=== PATIENT | female | born 1930 | race Caucasian/White ===

== ENCOUNTER → 2016-05-21 | Outpatient (CLI) | payer MEDICARE | LOC: BFHH 11:20 | PROVIDERS: ATTEND Family Medicine | DX: E55.9 Vitamin D deficiency, unspecified (principal); D51.0 Vitamin B12 deficiency anemia due to intrinsic factor deficiency; I11.0 Hypertensive heart disease with heart failure; I50.30 Unspecified diastolic (congestive) heart failure; E11.9 Type 2 diabetes mellitus without complications; I25.119 Atherosclerotic heart disease of native coronary artery with unspecified angina pectoris; R53.81 Other malaise; E03.8 Other specified hypothyroidism ==

== ENCOUNTER → 2016-11-16 | Outpatient (CLI) | payer MEDICARE | END | disposition home or self-care (01) | LOC: BFHH 09:34 | PROVIDERS: ATTEND Family Medicine | DX: I11.0 Hypertensive heart disease with heart failure (principal); E11.9 Type 2 diabetes mellitus without complications ==

== ENCOUNTER → 2017-05-10 | Outpatient (CLI) | payer MEDICARE | LOC: BFHH 13:06 | PROVIDERS: ATTEND Family Medicine | DX: E11.9 Type 2 diabetes mellitus without complications (principal) ==

== ENCOUNTER → 2017-05-24 | Outpatient (CLI) | payer MEDICARE | LOC: BFHH 10:10 | PROVIDERS: ATTEND Family Medicine | DX: J44.1 Chronic obstructive pulmonary disease with (acute) exacerbation (principal); I11.0 Hypertensive heart disease with heart failure; I50.30 Unspecified diastolic (congestive) heart failure; E11.9 Type 2 diabetes mellitus without complications; E78.4 Other hyperlipidemia; R53.82 Chronic fatigue, unspecified ==

== ENCOUNTER → 2017-06-07 | Outpatient (CLI) | payer MEDICARE ==
--- NOTE | 2017-06-08 09:13 | MAM ---
Screening BILATERAL MAMMOGRAMS HISTORY: SCREENING COMPARISON: Mammograms of August 22, 2012 and July 20, 2011 TECHNIQUE: Digital 2-D mammograms , and 3-D tomosynthesis,1 of both breasts were performed in CC and MLO orientations. Mammo CAD analysis also performed. FINDINGS: Scattered fibroglandular tissue identified in both breasts. Benign microcalcifications and vascular calcifications scattered in both breasts. No obvious mass lesion or concerning microcalcifications detected in either breast. IMPRESSION: No mammographic evidence of malignancy in either breast. BI-RADS: 2, benign findings. Follow-up: Annual surveillance recommended Electronically signed by: Kevin Lozano MD 06/08/2017 9:12 AM [employer]
== END ==
LOC: MAMMO 14:15
PROVIDERS: ATTEND Family Medicine
DX: Z12.31 Encounter for screening mammogram for malignant neoplasm of breast (principal)

== ENCOUNTER → 2017-06-19 | Outpatient (CLI) | payer MEDICARE | LOC: BFHH 13:40 | PROVIDERS: ATTEND Family Medicine | DX: N39.0 Urinary tract infection, site not specified (principal) ==

== ENCOUNTER → 2017-06-21 | Outpatient (CLI) | payer MEDICARE | LOC: BFHH 13:38 | PROVIDERS: ATTEND Family Medicine | DX: R35.0 Frequency of micturition (principal) ==

== ENCOUNTER 2017-07-26 16:09 | Inpatient (IN) | payer MEDICARE ==
--- NOTE | 2017-07-26 17:02 | ED.PDOC ---
History of Present Illness - General Chief Complaint: Syncope/Near Syncope Stated Complaint: syncope Time Seen by Provider: 07/26/17 16:49 Source: family Exam Limitations: other - PT HAS DEMENTIA Additional Information: PT HAS BEEN EXPERIENCING EPISODES OF HYPOTENSION. FAMILY PROVIDES HX. REPORTS BP 'S 50'S-60'S/40'S. 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 FAMILY REPORTS PROVIDER WITNESSED EPISODE AND TOLD THEM SHE HAD A SZ. - History of Present Illness Timing/Duration: other - [employer] Severity: moderate Improving Factors: nothing Worsening Factors: nothing Associated Symptoms: syncope, other - DIZZINESS WITH STANDING Allergies/Adverse Reactions: Allergies Propranolol [From Inderal] Allergy (Unknown, Verified 07/26/17 16:36) Home Medications: Ambulatory Orders Albuterol Sulfate 1 vial INH PRN PRN 07/17/13 Aspirin 81 81 mg PO DAILY 07/17/13 Budes/Formoterol INH 160/4.5 [Symbicort Inhaler 160/4.5] 1 puff INH BID Diovan 80 mg PO DAILY 07/17/13 Furosemide 20 mg PO DAILY 07/17/13 Isosorbide Mononitrate 60 mg PO DAILY 07/17/13 Klor-Con 10 10 meq PO DAILY 07/17/13 Metformin HCl 500 mg PO DAILY 07/17/13 Metoprolol Tartrate 50 mg PO BID 07/17/13 Vitamin D 1 tab PO DAILY 07/17/13 Ascorbic Acid [Vitamin C] 500 mg PO DAILY 05/15/15 Calcium Carbonate [Caltrate 600] 1,500 mg PO DAILY 05/15/15 Donepezil Hydrochloride [Donepezil HCl] 5 mg PO DAILY 05/15/15 Guaifenesin [Diabetic Tussin] 100 mg PO DAILY 05/15/15 Multiple Vitamins W/ Minerals [Centrum Adults] 1 tab PO DAILY 05/15/15 Niacin [Niacin Tr] 1,000 mg PO DAILY 05/15/15 Probiotic Product [Probiotic] 1 tab PO DAILY 05/15/15 Review of Systems - Review of Systems Constitutional: States: weakness. Denies: chills, fever EENTM: States: no symptoms reported Respiratory: Denies: cough, short of breath Cardiology: States: syncope. Denies: chest pain, palpitations Gastrointestinal/Abdominal: Denies: abdominal pain, diarrhea, nausea, vomiting Genitourinary: States: no symptoms reported Musculoskeletal: States: no symptoms reported Skin: States: no symptoms reported Neurological: States: other - "SZ". Denies: numbness, weakness Endocrine: States: no symptoms reported Hematologic/Lymphatic: States: no symptoms reported Past Medical History (General) - Patient Medical History Hx Dementia: Yes Hx Asthma: Yes Hx of COPD: Yes Hx Cardiac Disorders: Yes - [place] Hx Congestive Heart Failure: No Hx Hypertension: Yes Hx Diabetes: Yes Hx Cancer: No Surgical History: Hysterectomy, other - Vaccination History Hx Tetanus, Diphtheria Vaccination: Yes Hx Influenza Vaccination: Yes Hx Pneumococcal Vaccination: Yes - Social History Hx Tobacco Use: No Hx Alcohol Use: No - Female History Patient : No Family Medical History - Family History Mother Family History: No Known Living Status: Physical Exam - Physical Exam General Appearance: Alert, No apparent distress Eye Exam: bilateral normal Ears, Nose, Throat: hearing grossly normal, normal ENT inspection Neck: non-tender, full range of motion, supple, normal inspection Respiratory: lungs clear, no respiratory distress Cardiovascular/Chest: regular rate, rhythm, no murmur Gastrointestinal/Abdominal: normal bowel sounds, non tender, soft, no organomegaly Back Exam: normal inspection, no CVA tenderness Extremity: normal range of motion, non-tender, normal inspection Neurologic: no motor/sensory deficits, alert, normal mood/affect Skin Exam: normal color, warm/dry Lymphatic: no adenopathy Progress - Progress Progress: 07/26/17 18:16 VSS, POS TILT. - EKG/XRAY/CT EKG: Sinus - JAYCOB RATE 59, LAD, , RBBB, nonspecific ST T wave Chg - NO CHANGE FROM 01/03/15 XRAY: chest - LLL INFILTRATE Departure - Departure Clinical Impression: Orthostatic hypotension Pneumonia Qualifiers: Pneumonia type: due to unspecified organism Laterality: left Lung location: lower lobe of lung Qualified Code(s): J18.1 - Lobar pneumonia, unspecified organism Hypertension Qualifiers: Hypertension type: essential hypertension Qualified Code(s): I10 - Essential ( primary) hypertension Time of Disposition: 18:26 - D/W [facility] Disposition: Admit Patient Condition: Fair Departure Forms: ED Discharge - Pt. Copy, Patient Portal Self Enrollment Referrals: Jose Alberto Ascencio III, MD [Primary Care Provider] - 1-2 Weeks Home Medications: Ambulatory Orders Albuterol Sulfate 1 vial INH PRN PRN 07/17/13 Aspirin 81 81 mg PO DAILY 07/17/13 Budes/Formoterol INH 160/4.5 [Symbicort Inhaler 160/4.5] 1 puff INH BID Diovan 80 mg PO DAILY 07/17/13 Furosemide 20 mg PO DAILY 07/17/13 Isosorbide Mononitrate 60 mg PO DAILY 07/17/13 Klor-Con 10 10 meq PO DAILY 07/17/13 Metformin HCl 500 mg PO DAILY 07/17/13 Metoprolol Tartrate 50 mg PO BID 07/17/13 Vitamin D 1 tab PO DAILY 07/17/13 Ascorbic Acid [Vitamin C] 500 mg PO DAILY 05/15/15 Calcium Carbonate [Caltrate 600] 1,500 mg PO DAILY 05/15/15 Donepezil Hydrochloride [Donepezil HCl] 5 mg PO DAILY 05/15/15 Guaifenesin [Diabetic Tussin] 100 mg PO DAILY 05/15/15 Multiple Vitamins W/ Minerals [Centrum Adults] 1 tab PO DAILY 05/15/15 Niacin [Niacin Tr] 1,000 mg PO DAILY 05/15/15 Probiotic Product [Probiotic] 1 tab PO DAILY 05/15/15
--- NOTE | 2017-07-26 17:44 | RAD ---
EXAM DESCRIPTION: Chest,1 View CLINICAL HISTORY: SYNCOPE COMPARISON: January 03, 2015 FINDINGS: Cardiac silhouette is within normal limits. There is central pulmonary vascular engorgement versus enlarged parahilar lymph nodes or masses of other etiology. These findings appear similar. Atelectasis and probable consolidation involving the left lung base. The right lung is clear. IMPRESSION: Left lung base consolidation. Electronically signed by: Silverio Gerardo 07/26/2017 5:43 PM CDT
--- NOTE | 2017-07-26 17:47 | CT ---
EXAM DESCRIPTION: Head CLINICAL HISTORY: SZ COMPARISON: None Available TECHNIQUE: Contiguous axial CT images of the head were obtained. Coronal and sagittal reconstructions were created from the axial data. This exam was performed according to our departmental dose-optimization program, which includes automated exposure control, adjustment of the mA and/or kV according to patient size and/or use of iterative reconstruction technique. FINDINGS: There is no evidence of acute mass, mass effect, midline shift or hemorrhage. The ventricles and extra-axial CSF spaces are unremarkable. The brain parenchyma appears normal for the patient's age. No acute abnormalities of the bones is seen. IMPRESSION: No acute intracranial abnormality. Electronically signed by: Silverio Gerardo 07/26/2017 5:45 PM CDT
[2017-07-26] MEDS ORDERED: SODIUM CHLORIDE 0.9% 500ML 500 ML IVS ONE (18:08)
[2017-07-26] MEDS ORDERED: cefTRIAXone SODIUM 1 GM in SODIUM CHL 0.9% 50ML MIN-BAG+ 50 ML IVPB ONE (18:30)
[2017-07-26] MEDS ORDERED: AZITHROMYCIN IV 500 MG in SODIUM CHLORIDE 0.9% 250ML 250 ML IVPB ONE (18:30)
[2017-07-26] MEDS ORDERED: SODIUM CHL 0.9% 50ML MIN-BAG+ 50 ML IVPB ONE ×2 (18:54→22:13)
[2017-07-26] MEDS ORDERED: cefTRIAXone SODIUM 1 GM VIAL ONE (18:54)
[2017-07-26] MEDS ORDERED: AZITHROMYCIN IV 500 MG VIAL IVPB ONE (19:26)
[2017-07-26] MEDS ORDERED: SODIUM CHLORIDE 0.9% 250ML 250 ML ONE (19:26)
--- NOTE | 2017-07-26 19:46 | HP ---
SUPERVISING PHYSICIAN: Santo Wright MD CHIEF COMPLAINT: Syncope. HISTORY OF PRESENT ILLNESS: This is an 86-year-old female who came to the Emergency Room today from her primary care physician's office, Dr. Ascencio. The daughter is at the bedside and is assisting with history of present illness as the patient does have some dementia. The daughter states she has been on antibiotics for the last couple of weeks. She does not really know what antibiotic it was, but she knows she has been on it for the last couple of weeks. On Wednesday, she became more short of breath and had low O2 saturations. The home health nurse recommended that she go to the clinic on Wednesday, so she did. Her daughter states she got a steroid injection and possibly antibiotic shot there and p.o. antibiotics were changed. She does not have the name of these two antibiotics that she was on. On Wednesday about 2 o' clock in the afternoon, she was lightheaded and dizzy. They took her blood pressure and it was 57/41. Home health nurse came to see her that day as well and recommended she get some IV fluids. The daughter tried some Pedialyte but she was pretty nauseous and really could not drink too much of it. Today, she went to her doctor's clinic after having another episode of low blood pressure and hear syncopal episode. She went to the clinic around 3 o'clock and once again there when she stood up, she did become syncopal at that time and had what they initially described as a possible seizure. For that reason, the ambulance came and got her and she went to the Emergency Room. In the Emergency Room, her workup included x-ray as well as labs. Her labs showed a normal white count, but she does have a left shift at 90%. She additional has 3 % bands. Her chemistry shows acute kidney injury, but lactate was normal. Blood pressure in the Emergency Room was initially in the 90s. It dropped as low as 78/45. She was given a 500 mL bolus and the orthostatic pressure did go low. Chest x-ray was consistent with left lower lobe pneumonia as well. For these reasons, I was called for admission. On examination, the patient is alert and oriented, but she does have some confusion and repeats herself. She does have a really terrible sounding cough. On exam, she has quite a bit of rhonchi bilaterally. She does have a history of chronic obstructive pulmonary disease as well. Blood pressure here on the Unit is 109/65. PAST MEDICAL HISTORY: 1. Hypertension. 2. Hyperlipidemia. 3. Myocardial infarction about 18 years ago. She continues to have some angina. 4. Congestive heart failure. 5. Chronic obstructive pulmonary disease. 6. Dementia. 7. Irritable bowel syndrome. 8. H. pylori. 9. Diabetes mellitus. PAST SURGICAL HISTORY: 1. Percutaneous transluminal coronary angioplasty with stent times two 18 years ago whenever she had her myocardial infarction. 2. Hysterectomy. 3. Hernia repair. CURRENT MEDICATIONS: 1. Albuterol nebulizer p.r.n. for shortness of breath. 2. Vitamin C 500 mg p.o. daily. 3. Aspirin 81 mg daily. 4. Budesonide and formoterol 160/4.5 1 puff b.i.d. 5. Calcium carbonate 1500 mg tab p.o. daily. 6. Aricept 10 mg p.o. daily. 7. Lexapro 5 mg p.o. daily. 8. Furosemide 20 mg p.o. daily. 9. DuoNeb unit dose q.i.d. p.r.n. 10. Potassium 10 mEq p.o. daily. 11. Lovastatin 20 mg p.o. daily at bedtime. 12. Memantine 5 mg p.o. b.i.d. 13. Metformin 500 mg p.o. daily. 14. Metoprolol 50 mg p.o. b.i.d. 15. Multivitamin 1 p.o. daily. 16. Niacin 1000 mg p.o. daily. 17. Omeprazole 20 mg p.o. daily. 18. Probiotic 1 tab p.o. daily. 19. Simethicone 80 mg 2 tabs p.o. b.i.d. as needed. 20. Vitamin D 1 tab p.o. daily. ALLERGIES: INDERAL. FAMILY HISTORY: Reviewed and noncontributory. SOCIAL HISTORY: The patient has a distant history of smoking, but quite 40 years ago. No alcohol, no illicit drugs. REVIEW OF SYSTEMS: CONSTITUTIONAL: No fever or chills. No recent weight loss or weight gain. Positive for malaise. HEENT: No headaches, vision changes, ear pain, nasal congestion or throat pain. RESPIRATORY: Positive for cough. No hemoptysis or pleuritic chest pain. CARDIOVASCULAR: No chest pain, palpitations or peripheral edema. GASTROINTESTINAL: No nausea, vomiting, diarrhea, constipation or abdominal pain. GENITOURINARY: No dysuria, frequency or flank pain. HEMATOLOGIC: Positive for easy bruising. No transfusion reaction. MUSCULOSKELETAL: No muscle cramps, joint pain or joint swelling. ENDOCRINE: No polydipsia, polyuria, polyphagia. No heat or cold intolerance. NEUROLOGIC: Positive for syncope. No paresthesias. Positive for some confusion. PHYSICAL EXAMINATION: VITAL SIGNS: Blood pressure 110/63. Heart rate 60. Respiratory rate 18. Temperature 97.9. Oxygen saturation 97%. GENERAL: Ms. Holguin is an 86-year-old female acutely ill in appearance currently. HEENT: Normocephalic, atraumatic. Pupils are equal and reactive. No nasal drainage. Throat with slightly dry mucosa. NECK: Supple. Midline trachea. No jugular venous distention. CHEST: Symmetrical with equal rise and fall of the chest with inspiration and expiration. Accessory muscles are being used with respirations. She does have coarse rhonchi bilaterally, scattered wheezing as well. CARDIOVASCULAR: Regular rate and rhythm with II/ systolic murmur. ABDOMEN: Soft, obese. Positive bowel sounds. GENITOURINARY: Deferred. EXTREMITIES: Lower extremities with positive edema. Pulses 1+. Capillary refill is about 3 seconds. NEUROLOGIC: The patient is alert, but confused. Moves all extremities. Extraocular movements are intact. LABORATORY: Chest x-ray consistent with left lower lobe pneumonia. Chemistry remarkable for BUN 24, creatinine 1.34, lactate 1.5. Cultures are pending. White count is normal, however, there are 3% bands a 90% left shift. ASSESSMENT: 1. Left lower lobe pneumonia, failed outpatient therapy. Although white count is normal, she has bandemia as well as left shift. She has been on antibiotics for 2 weeks with no significant improvement in her cough and existing infiltrate on chest x- ray. 2. Syncopal episode with possible seizure. Potential seizure activity noted by the staff at the doctor's office, however, she has no history of seizures. We will continue to monitor for this. 3. Dehydration with acute kidney injury. 4. Diabetes mellitus. 5. History of congestive heart failure. 6. History of hypertension. 7. Dementia. PLAN: Regarding her left lower lobe pneumonia failed outpatient therapy, we will escalate her antibiotics to Levaquin and cefepime. We will recheck labs and chest x-ray tomorrow. Regarding her syncopal episode, we will keep bedrest , but she may get up with some assistance. Her blood pressure is a little bit improved and I feel like she needs some more fluids, so we will gently rehydrate her. This will address her dehydration and acute kidney injury as well. We are currently holding her antihypertensives as well. I will resume her metformin and start her on sliding scale insulin as well in case she needs some extra coverage. She is not currently having any congestive heart failure exacerbation. We will resume her other home medications which may not affect her blood pressure at this time. Her chest X-ray shows prominent pulmonary arteries versus mass, so will get a CT of the chest in the morning. #[id number] [facility]
[2017-07-26] MEDS ORDERED: SODIUM CHLORIDE 0.9% (FLUSH) 10 ML SYG IV PRN (21:01)
[2017-07-26] MEDS ORDERED: DEXTROSE 50% 25 GM/50 ML SYG IV PRN (21:03)
[2017-07-26] MEDS ORDERED: GLUCAGON INJ 1 MG VIAL SUBCU PRN (21:03)
[2017-07-26] MEDS ORDERED: IV SET AND CAP CHANGE INJ INJ SCH (21:30)
[2017-07-26] MEDS ORDERED: ENOXAPARIN SODIUM 40 MG/0.4 ML SYG SUBCU SCH (21:30)
[2017-07-26] MEDS ORDERED: levoFLOXacin 750MG IV 750 MG in PREMIX BAG 1 BAG IVPB SCH (21:30)
[2017-07-26] MEDS: IPRATROPIUM/ALBUTEROL 3 ML VIAL INH SCH (22:00)
[2017-07-26] MEDS ORDERED: CEFEPIME 2 GM VIAL IVPB ONE (22:14)
[2017-07-26] MEDS: SODIUM CHLORIDE 0.9% 1000ML 1,000 ML IVS PRN (22:31)
[2017-07-26] MEDS: CEFEPIME 2 GM in SODIUM CHL 0.9% 50ML MIN-BAG+ 50 ML IVPB SCH (22:32)
[2017-07-27] MEDS: IPRATROPIUM/ALBUTEROL 3 ML VIAL INH SCH ×6 (00:42→20:03)
[2017-07-27] MEDS ORDERED: SODIUM CHL 0.9% 50ML MIN-BAG+ 50 ML IVPB ONE ×2 (07:53→19:27)
[2017-07-27] MEDS ORDERED: CEFEPIME 2 GM VIAL IVPB ONE ×2 (07:53→19:28)
[2017-07-27] MEDS ORDERED: ASPIRIN (CHEWABLE) 81 MG TAB ONE (07:53)
[2017-07-27] MEDS: INSULIN LISPRO 100 UNITS/ML PEN SUBCU SCH ×4 (08:49→21:00)
[2017-07-27] MEDS: BUDESONIDE/FORMOTEROL 160/4.5 60 PUFF/6 GM INH INH SCH ×2 (08:55→20:04)
[2017-07-27] MEDS ORDERED: metFORMIN HCL 500 MG TAB PO SCH (09:00)
[2017-07-27] MEDS: MEMANTINE 10 MG TAB PO SCH ×2 (09:02→20:43)
[2017-07-27] MEDS: OMEPRAZOLE CAP 20 MG CAP PO SCH (09:03)
[2017-07-27] MEDS: DONEPEZIL HCL 5 MG TAB PO SCH (09:03)
[2017-07-27] MEDS: ESCITALOPRAM 10 MG TAB PO SCH (09:03)
[2017-07-27] MEDS: CEFEPIME 2 GM in SODIUM CHL 0.9% 50ML MIN-BAG+ 50 ML IVPB SCH ×2 (09:04→21:00)
[2017-07-27] MEDS: ASPIRIN EC 81 MG TAB PO SCH (09:13)
[2017-07-27] MEDS ORDERED: UMECLIDINIUM BROMIDE INH SCH (09:15)
--- NOTE | 2017-07-27 09:17 | CT ---
EXAM DESCRIPTION: Chest w/Contrast CLINICAL HISTORY: 86 years Female, pneumonia, rule out mass COMPARISON: Chest x-ray dated 26 July 2017 TECHNIQUE: Transaxial images were obtained with intravenous contrast media. Sagittal and coronal reconstruction was performed.This exam was performed according to our departmental dose-optimization program, which includes automated exposure control, adjustment of the mA and/or kV according to patient size and/or use of iterative reconstruction technique. FINDINGS: No thyroid abnormality is seen. No pathologic axillary adenopathy is observed. No hilar or mediastinal adenopathy is seen. No pleural fluid is seen. Minimal atelectatic type parenchymal lung disease is observed in the left lower lobe and right middle lobe. Minimal atelectasis is also observed in the right lower lobe. No adrenal masses are detected. Calcific atherosclerotic changes observed in the thoracic aorta without evidence of aneurysmal dilatation. A markedly dilated pulmonary artery trunk and pulmonary vascularity is observed. Bilateral pulmonary emboli are observed. Coronary artery calcification is noted. The left main pulmonary artery measures 3.72 cm in greatest diameter. The right measures 3.96cm in greatest diameter. Mild cardiac megaly is evident. IMPRESSION: 1. Bilateral pulmonary emboli are observed. 2. Marked dilatation of the pulmonary arteries and pulmonary trunk are observed consistent with pulmonary artery hypertension. 3. Results were called to Dr. Dominguez Electronically signed by: Jose Alberto Dash MD 07/27/2017 9:16 AM CDT
[2017-07-27] MEDS: ENOXAPARIN SODIUM 80 MG/0.8 ML SYG SUBCU SCH ×2 (10:15→20:42)
[2017-07-27] MEDS: SODIUM CHLORIDE 0.9% 1000ML 1,000 ML IVS PRN ×2 (13:02→21:42)
[2017-07-27] MEDS ORDERED: levoFLOXacin 250MG IV 50 ML IVPB ONE (19:28)
--- NOTE | 2017-07-27 19:29 | PN ---
DATE: 07/27/17 SUPERVISING PHYSICIAN: Santo Wright M.D. SUBJECTIVE: The patient feels a little bit better subjectively. She states that she slept well overnight. No significant shortness of breath. She does have a weird sensation on the left side of her chest, not overt pain but just a little bit of discomfort. OBJECTIVE: Blood pressure 151/72, heart rate 64, respiratory rate 20, temperature 98.8, oxygen saturation 97%. GENERAL: Ms. Holguin is an 86 year- old female in no active distress currently. HEENT: Head is normocephalic and atraumatic. EYES: Pupils are equal and reactive. NOSE: No drainage. THROAT: Moist mucosa. NECK: Supple. Midline trachea. No jugular venous distention. CHEST: Symmetrical with equal rise and fall of the chest with inspiration and expiration. Lung sounds are clear to auscultation bilaterally, but a little bit diminished in the bases. CARDIOVASCULAR: Regular rate and rhythm. Normal S1 and S2. ABDOMEN: Soft, obese. Positive bowel sounds. EXTREMITIES: Lower extremities are edematous. Pulses are 2+. NEUROLOGIC: The patient is alert but confused and repeats herself. LABORATORY: White count 6.8, hemoglobin 12.1, hematocrit 36.0, platelet count 199. Chemistry shows sodium 139, potassium 3.5, chloride 103, CO2 is 31, BUN 24 , creatinine 1.01, glucose 100, calcium 8.3. Due to her abnormal chest x-ray yesterday around the perihilar areas where the pulmonary arteries were, we did a CT angiogram of the chest today. This showed bilateral pulmonary emboli and dilation of the pulmonary arteries consistent with pulmonary artery hypertension. ASSESSMENT: 1. Left lower lobe pneumonia with failed outpatient therapy. 2. Bilateral pulmonary emboli. 3. Syncopal episode with possible seizure. 4. Dehydration with acute kidney injury, improved. 5. Diabetes mellitus, controlled. 6. History of congestive heart failure without an acute exacerbation. 7. History of hypertension. 8. Dementia. PLAN: Regarding her left lower lobe pneumonia, will continue the antibiotics at this point. Her white cell count is still normal. She still has a pretty significant cough. Will recheck labs tomorrow. Chest x-ray today was not done due to the CT scan of the chest. Regarding her pulmonary emboli, these are not saddle emboli and not causing hemodynamic instability at this time. Her oxygenation is adequate. Therefore I will utilize Lovenox 1mg per kg b.i.d.. Would change her to p.o. anticoagulation as soon as possible once we know what medication is in compliance with her insurance. Holding her Metformin at [address] angiogram of the chest. Her blood pressure is significantly improved and almost hypertensive at this time, so will consider resuming her blood pressure medications tomorrow. #[id number] [facility]
[2017-07-27] MEDS: UMECLIDINIUM BROMIDE INH SCH (20:04)
[2017-07-27] MEDS: SIMVASTATIN 10 MG TAB PO SCH (20:43)
[2017-07-27] MEDS ORDERED: NON-FORMULARY MEDICATION 1 EA MIS (Lovastatin [Lovastatin] 20 MG) PO SCH (21:00)
[2017-07-27] MEDS: levoFLOXacin 250MG IV 250 MG in PREMIX BAG 1 BAG IVPB SCH (21:42)
[2017-07-28] MEDS: IPRATROPIUM/ALBUTEROL 3 ML VIAL INH SCH ×6 (00:02→20:10)
[2017-07-28] MEDS: OMEPRAZOLE CAP 20 MG CAP PO SCH (06:22)
[2017-07-28] MEDS: INSULIN LISPRO 100 UNITS/ML PEN SUBCU SCH ×4 (07:14→21:41)
[2017-07-28] MEDS ORDERED: SODIUM CHL 0.9% 50ML MIN-BAG+ 50 ML IVPB ONE ×2 (07:16→20:20)
[2017-07-28] MEDS ORDERED: CEFEPIME 2 GM VIAL IVPB ONE ×2 (07:17→20:21)
[2017-07-28] MEDS: BUDESONIDE/FORMOTEROL 160/4.5 60 PUFF/6 GM INH INH SCH ×2 (08:15→20:10)
[2017-07-28] MEDS: SODIUM CHLORIDE 0.9% 1000ML 1,000 ML IVS PRN (09:05)
[2017-07-28] MEDS: MEMANTINE 10 MG TAB PO SCH ×2 (09:07→21:16)
[2017-07-28] MEDS: ESCITALOPRAM 10 MG TAB PO SCH (09:08)
[2017-07-28] MEDS: ASPIRIN EC 81 MG TAB PO SCH (09:08)
[2017-07-28] MEDS: DONEPEZIL HCL 5 MG TAB PO SCH (09:08)
[2017-07-28] MEDS: ENOXAPARIN SODIUM 80 MG/0.8 ML SYG SUBCU SCH ×2 (09:09→21:16)
[2017-07-28] MEDS: CEFEPIME 2 GM in SODIUM CHL 0.9% 50ML MIN-BAG+ 50 ML IVPB SCH ×2 (09:09→21:18)
[2017-07-28] MEDS ORDERED: POTASSIUM CHLORIDE 20 MEQ TAB PO ONE (17:13)
[2017-07-28] MEDS: UMECLIDINIUM BROMIDE INH SCH (20:10)
[2017-07-28] MEDS ORDERED: levoFLOXacin 250MG IV 50 ML IVPB ONE (20:21)
[2017-07-28] MEDS ORDERED: ACETAMINOPHEN 325 MG TAB PO SCH (21:00)
[2017-07-28] MEDS ORDERED: diphenhydrAMINE HCL 25 MG CAP PO SCH (21:00)
[2017-07-28] MEDS: guaiFENesin ER TAB 600 MG TAB PO SCH (21:15)
[2017-07-28] MEDS: SODIUM CHLORIDE 0.9% (FLUSH) 10 ML SYG IV SCH (21:16)
[2017-07-28] MEDS: SIMVASTATIN 10 MG TAB PO SCH (21:17)
[2017-07-28] MEDS: NON-FORMULARY MEDICATION 1 EA MIS PO SCH (21:39)
[2017-07-28] MEDS: levoFLOXacin 250MG IV 250 MG in PREMIX BAG 1 BAG IVPB SCH (22:18)
--- NOTE | 2017-07-28 22:49 | PN ---
DATE: 07/28/17 SUBJECTIVE: The patient is sitting up in her bed eating her meal. She continues to have some weakness and fatigue as well as occasional shortness of breath but is feeling better. No complaints of chest pain, nausea, vomiting or diarrhea. OBJECTIVE: VITAL SIGNS: She is afebrile, heart rate 69, blood pressure 157/69, respiratory rate 20, O2 sat is 92% on 2 liters nasal cannula. GENERAL: This is an 86 year-old female patient lying in her hospital bed. She is in no acute distress. RESPIRATORY: Scattered rhonchi throughout with very coarse breath sounds. CARDIAC: Regular rate and rhythm. GASTROINTESTINAL: Abdomen is soft, nondistended, non-tender. Bowel sounds are positive. EXTREMITIES: No cyanosis , clubbing or edema. NEUROLOGIC: She is awake, alert and oriented times three. LABORATORY: WBCs are 5.6, hemoglobin 12, hematocrit 35.4, platelets 179. Sodium 140, potassium is slightly low at 3.4 with chloride 107, carbon dioxide 26, BUN 12, creatinine 0.83. Blood sugars have run between 121 and 142. Calcium 8.1. Preliminary urine cultures show no growth after 24 hours. Preliminary blood cultures show no growth after 24 hours. All other labs and films have been reviewed via the EMR. ASSESSMENT: 1. Left lower lobe pneumonia with failed outpatient therapy. 2. Bilateral pulmonary emboli. 3. Syncopal episode with possible seizure. 4. Dehydration with acute kidney injury that has improved. 5. Diabetes mellitus type 2 well controlled. 6. History of congestive heart failure without an acute exacerbation. 7. History of hypertension. 8. Dementia. PLAN: We will continue present supportive care. I believe she does have oxygen at home, so she will have that at home at discharge. I have also ordered physical therapy to assess for her safety for discharge planning. Tonight she will have her last dose of Lovenox and 2 hours prior to her last dose, we will stop the Xarelto starter pack. I have also ordered lab and a chest x-ray in the morning. She has received a dose of K-Dur for potassium supplementation. We will continue to monitor the patient closely and follow as needed. Dr. Wright is the collaborating physician available for consultation. #[id number] [facility]
[2017-07-29] MEDS: IPRATROPIUM/ALBUTEROL 3 ML VIAL INH SCH ×4 (00:48→11:49)
[2017-07-29] MEDS ORDERED: CEFEPIME 2 GM VIAL IVPB ONE ×2 (05:32→09:05)
[2017-07-29] MEDS ORDERED: SODIUM CHL 0.9% 50ML MIN-BAG+ 0 ML IVPB ONE (05:32)
[2017-07-29 05:52] VITALS: TEMP 98.2
[2017-07-29] MEDS: OMEPRAZOLE CAP 20 MG CAP PO SCH (06:39)
[2017-07-29] MEDS: INSULIN LISPRO 100 UNITS/ML PEN SUBCU SCH ×2 (07:00→11:30)
--- NOTE | 2017-07-29 07:22 | RAD ---
Procedure: XR CHEST 2 VIEWS Exam Date: 07/29/2017 Ordering Provider: FELIBERTO PAYNE Clinical Indication: Pneumonia, cough Comparison: 07/26/2017 Findings: Cardiomediastinal silhouette: Cardiomegaly Pulmonary vasculature : Dilated centrally. Aortic calcification. Focal lung consolidation: Right middle lobe atelectasis and/or infiltrate. Left basilar subsegmental atelectasis. Pleural effusion: None Pneumothorax: None Bones and soft tissues: Stable Impression: 1. Right middle lobe atelectasis and/or infiltrate. Electronically signed by: Denys Arreola MD 07/29/2017 7:21 AM CDT
[2017-07-29] MEDS: BUDESONIDE/FORMOTEROL 160/4.5 60 PUFF/6 GM INH INH SCH (08:36)
[2017-07-29] MEDS ORDERED: guaiFENesin ER TAB 600 MG TAB ONE (09:04)
[2017-07-29] MEDS ORDERED: SODIUM CHL 0.9% 50ML MIN-BAG+ 50 ML IVPB ONE (09:05)
[2017-07-29] MEDS: ESCITALOPRAM 10 MG TAB PO SCH (10:02)
[2017-07-29] MEDS: ASPIRIN EC 81 MG TAB PO SCH (10:02)
[2017-07-29] MEDS: guaiFENesin ER TAB 600 MG TAB PO SCH (10:02)
[2017-07-29] MEDS: CEFEPIME 2 GM in SODIUM CHL 0.9% 50ML MIN-BAG+ 50 ML IVPB SCH (10:02)
[2017-07-29] MEDS: MEMANTINE 10 MG TAB PO SCH (10:02)
[2017-07-29] MEDS: NON-FORMULARY MEDICATION 1 EA MIS PO SCH (10:05)
[2017-07-29] MEDS: SODIUM CHLORIDE 0.9% (FLUSH) 10 ML SYG IV SCH (10:30)
[2017-07-29] MEDS: DONEPEZIL HCL 5 MG TAB PO SCH (10:30)
--- NOTE | 2017-07-29 11:43 | DS ---
SUPERVISING PHYSICIAN: Santo Wright MD DISCHARGE DIAGNOSIS: 1. Left lower lobe pneumonia with failed outpatient therapy. 2. Bilateral pulmonary emboli. 3. Syncopal episode with possible seizure. 4. Dehydration with acute kidney injury that has improved. 5. Diabetes mellitus, type 2, well controlled. 6. History of congestive heart failure without an acute exacerbation. 7. History of hypertension. 8. Dementia. HISTORY OF PRESENT ILLNESS: This is an 86-year-old female who lives at home with her sister. Her primary care physician is Dr. Ascencio. She presented to the Emergency Room for an upper respiratory infection. She had been treated by Dr. Ascencio with some antibiotics as an outpatient. On Wednesday prior to admission, she became very short of breath and had low O2 saturations. The home health nurse recommended that she go to the clinic on Wednesday. Her daughter stated she got a steroid injection and an antibiotic shot there and p.o. antibiotics were changed. None of the antibiotics were named. On Wednesday, she became lightheaded and dizzy. Her blood pressure at that time was 57/41. The home health nurse recommended she get some IV fluids. The daughter tried some Pedialyte but the patient was very nauseous and could not drink much of it. On the day of admission, she went to Dr. Ascencio' office and had a near syncopal episode. Initially they questioned if she has seizure like activity, so the ambulance was sent to the clinic and picked her and she came to the Emergency Room. In the Emergency Room, her workup included x-ray that was consistent with left lower lobe pneumonia. Her labs showed a normal white count , but she had a left shift at 90%. She additionally had 3% bands. Her chemistry showed acute kidney injury, but lactate was normal. Blood pressure in the Emergency Room was initially in the 90s. It dropped as low as 78/45. She had a positive tilt. She was given a normal saline bolus in the Emergency Room. She does have a history of dementia, but she had some confusion that was not her baseline while in the Emergency Room. She had a very productive cough. She also has a history of chronic obstructive pulmonary disease. She as admitted to the hospital. HOSPITAL COURSE: In the hospital her WBCs remained normal and initially her neutrophils were 90%, but they normalized to 74% after that. Hemoglobin and hematocrit were stable. Blood sugars were also stable. Creatinine normalized to 0.74 with BUN 8. Urine culture showed no growth after 48 hours and her preliminary blood culture showed no growth after 48 hours. She also had a CT of the head and the chest. CT of the head showed no acute intracranial abnormality. No seizure activity was observed during admission. The CT of her chest showed bilateral pulmonary emboli with marked dilatation of the pulmonary arteries and pulmonary trunk consistent with pulmonary artery hypertension. The patient was changed from DVT prophylaxis Lovenox to Lovenox 1 mg per kg every 12 hours. Yesterday, she was started on a Xarelto starter pack which was 15 mg b.i.d. for 21 days. She started the Xarelto 2 hours prior to her final dose of Lovenox. Her chest x-ray this morning shows continued right middle lobe atelectasis and/or infiltrate, but clinically she is much improved. She still has some coarse rhonchi throughout but she is coughing up sputum well and will continue on Mucinex. DISCHARGE PLAN: The patient will be discharged home in stable condition. She will have [facility]. She lives with her sister and her family is in close contact to assist her with any of her activities of daily living. She has a close followup with her primary care physician, Dr. Ascencio, on at 9:45 AM. She will be discharged with the Xarelto starter pack and has been instructed to continue that. I have also ordered some Levaquin for 6 additional days as well as Mucinex twice a day for 15 additional days. She may also need a referral to neurology for possible seizure. She is to resume her usual diabetic diet and to call Dr. Ascencio' office or return to the hospital for any further complications or problems. DISCHARGE MEDICATIONS: 1. Metoprolol. 2. Metformin. 3. Klor-Con. 4. Furosemide. 5. Aspirin. 6. Symbicort. 7. Albuterol nebulizers. 8. Vitamin D. 9. Donepezil. 10. Probiotic. 11. Niacin. 12. Multivitamin. 13. Calcium carbonate. 14. Vitamin C. 15. DuoNeb. 16. Memantine. 17. Omeprazole. 18. Lexapro. 19. Lovastatin. 20. Gas-X. 21. Incruse Ellipta. 22. Guaifenesin. 23. Levaquin. 24. Xarelto starter pack. Dr. Wright is the collaborating physician and available for consultation. #[id number] [facility], [place]
[2017-07-29 12:03] VITALS: BP 162/78
[2017-07-29 12:47] VITALS: O2SAT 97
== END 2017-07-29 13:40 | disposition home health service (06) | DRG 193 ==
LOC: ER 16:09 → OBSVTOIN 19:44 → MS 19:44
PROVIDERS: ADMIT Nurse Practitioner; ATTEND Nurse Practitioner Acute Care
PROC: BB24YZZ Computerized Tomography (CT Scan) of Bilateral Lungs using Other Contrast (ICD-10-PCS; principal; 2017-07-27)
DX: J18.9 Pneumonia, unspecified organism (principal); I26.99 Other pulmonary embolism without acute cor pulmonale; J44.0 Chronic obstructive pulmonary disease with (acute) lower respiratory infection; N17.9 Acute kidney failure, unspecified; E86.0 Dehydration; I11.0 Hypertensive heart disease with heart failure; I50.9 Heart failure, unspecified; E11.9 Type 2 diabetes mellitus without complications; F03.90 Unspecified dementia, unspecified severity, without behavioral disturbance, psychotic disturbance, mood disturbance, and anxiety; Z95.5 Presence of coronary angioplasty implant and graft; Z88.8 Allergy status to other drugs, medicaments and biological substances; E78.5 Hyperlipidemia, unspecified; I25.119 Atherosclerotic heart disease of native coronary artery with unspecified angina pectoris; K58.9 Irritable bowel syndrome, unspecified; R56.9 Unspecified convulsions; I95.1 Orthostatic hypotension; I27.20 Pulmonary hypertension, unspecified; I25.2 Old myocardial infarction; Z87.891 Personal history of nicotine dependence; Z79.82 Long term (current) use of aspirin; Z79.84 Long term (current) use of oral hypoglycemic drugs; Z79.899 Other long term (current) drug therapy

== ENCOUNTER → 2017-08-05 | Outpatient (CLI) | payer MEDICARE ==
--- NOTE | 2017-08-06 09:15 | US ---
EXAM DESCRIPTION: Venous,Lower Extremity LT Venous, lower extremity right CLINICAL HISTORY: I82.403 COMPARISON: None Available. TECHNIQUE: Bilateral lower extremity venous duplex FINDINGS: Doppler evaluation of the right and left lower extremity deep veins was performed. Normal color flow is seen in the common femoral, superficial femoral, profunda femoral and greater saphenous veins. Normal flow is seen in the right and left popliteal veins and veins below the knee in the calf. Normal venous compressibility and flow augmentation. IMPRESSION: Negative for evidence of deep venous thrombosis on right and left lower extremity venous Doppler sonogram. Electronically signed by: Perfecto Tran MD 08/06/2017 9:14 AM CDT
--- NOTE | 2017-08-06 09:15 | US ---
EXAM DESCRIPTION: Venous,Lower Extremity LT Venous, lower extremity right CLINICAL HISTORY: I82.403 COMPARISON: None Available. TECHNIQUE: Bilateral lower extremity venous duplex FINDINGS: Doppler evaluation of the right and left lower extremity deep veins was performed. Normal color flow is seen in the common femoral, superficial femoral, profunda femoral and greater saphenous veins. Normal flow is seen in the right and left popliteal veins and veins below the knee in the calf. Normal venous compressibility and flow augmentation. IMPRESSION: Negative for evidence of deep venous thrombosis on right and left lower extremity venous Doppler sonogram. Electronically signed by: Perfecto Tran MD 08/06/2017 9:13 AM CDT
== END ==
LOC: US 10:00
PROVIDERS: ATTEND Family Medicine
DX: I82.403 Acute embolism and thrombosis of unspecified deep veins of lower extremity, bilateral (principal); I82.409 Acute embolism and thrombosis of unspecified deep veins of unspecified lower extremity; M79.661 Pain in right lower leg; M79.662 Pain in left lower leg

== ENCOUNTER → 2017-08-09 | Outpatient (CLI) | payer MEDICARE | LOC: BFHH 09:08 | PROVIDERS: ATTEND Podiatrist Foot & Ankle Surgery | DX: I11.0 Hypertensive heart disease with heart failure (principal); E11.9 Type 2 diabetes mellitus without complications; E07.9 Disorder of thyroid, unspecified ==

== ENCOUNTER 2017-08-14 22:38 | Emergency (ER) | payer MEDICARE ==
[2017-08-14 23:05] VITALS: TEMP 98.3; O2SAT 97
--- NOTE | 2017-08-14 23:32 | RAD ---
EXAM DESCRIPTION: Chest,2 Views CLINICAL HISTORY: 86 years Female fu pneumoina, low bp COMPARISON: 07/29/2017 FINDINGS: Cardiac enlargement which is stable. Prominent right and left pulmonary arteries which is also stable consistent with pulmonary hypertension. Some blunting of the costophrenic angles bilaterally which is unchanged. Small amount of atelectasis or scarring in the lung bases. No new area of infiltrate is noted. IMPRESSION: Cardiac enlargement with prominent pulmonary arteries bilaterally consistent with pulmonary hypertension Scarring in the lung bases No acute process noted Electronically signed by: Radha Tsai MD 08/14/2017 11:30 PM CDT
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
[2017-08-14 23:59] VITALS: BP 126/62
== END 2017-08-15 00:02 | disposition home or self-care (01) ==
LOC: ER 22:38
DX: I95.2 Hypotension due to drugs (principal); E86.0 Dehydration; I26.99 Other pulmonary embolism without acute cor pulmonale; F03.90 Unspecified dementia, unspecified severity, without behavioral disturbance, psychotic disturbance, mood disturbance, and anxiety; J44.9 Chronic obstructive pulmonary disease, unspecified; I11.0 Hypertensive heart disease with heart failure; I50.9 Heart failure, unspecified; I45.10 Unspecified right bundle-branch block; E11.9 Type 2 diabetes mellitus without complications; Z79.82 Long term (current) use of aspirin; Z79.01 Long term (current) use of anticoagulants

== ENCOUNTER → 2017-08-26 | Outpatient (CLI) | payer MEDICARE ==
--- NOTE | 2017-08-26 16:12 | RAD ---
EXAM DESCRIPTION: Elbow,Left 3 Views CLINICAL HISTORY: 86 years Female, PAIN IN LEFT ELBOW COMPARISON: None available. FINDINGS: The visualized bones are well-mineralized.No acute fracture or dislocation. The soft tissues appear grossly unremarkable. IMPRESSION: Grossly normal radiographs of left elbow. Electronically signed by: Janene Chun MD 08/26/2017 4:10 PM CDT
--- NOTE | 2017-08-26 16:13 | RAD ---
EXAM DESCRIPTION: Shoulder,Left 2 or More Views CLINICAL HISTORY: 86 years Female, PAIN IN LEFT SHOULDER COMPARISON: None available. FINDINGS: The visualized bones are well-mineralized.No acute fracture or dislocation. The soft tissues appear grossly unremarkable. Moderate acromioclavicular joint osteoarthritis. Intracortical cysts are noted in the humeral head, suggesting rotator cuff pathology. IMPRESSION: Moderate acromioclavicular joint osteoarthritis. Intracortical cysts are noted in the humeral head, suggesting rotator cuff pathology. Electronically signed by: Janene Chun MD 08/26/2017 4:11 PM CDT
== END ==
LOC: RAD 07:46
PROVIDERS: ATTEND Orthopaedic Surgery
DX: M25.522 Pain in left elbow (principal); M25.512 Pain in left shoulder; M19.012 Primary osteoarthritis, left shoulder

== ENCOUNTER → 2017-10-25 | Outpatient (CLI) | payer MEDICARE | LOC: BFHH 11:21 | PROVIDERS: ATTEND Family Medicine | DX: I11.0 Hypertensive heart disease with heart failure (principal); I50.30 Unspecified diastolic (congestive) heart failure; J44.9 Chronic obstructive pulmonary disease, unspecified; E11.9 Type 2 diabetes mellitus without complications; E78.4 Other hyperlipidemia ==

== ENCOUNTER → 2017-11-04 | Outpatient (CLI) | payer MEDICARE ==
--- NOTE | 2017-11-04 11:27 | CT ---
EXAM DESCRIPTION: CTA Chest: Computed Tomography. CLINICAL HISTORY: Pulmonary Embolism. Pulmonary artery hypertension. Previous CT demonstrated bilateral pulmonary emboli. COMPARISON: CT scan of the chest with IV contrast 07/27/2017. TECHNIQUE: Spiral-axial scans at 2.5 mm intervals through the pulmonary arteries and chest after bolus infusion of IV contrast. Lung algorithm 1.25_-mm axial reconstructions. Lateral and coronal 1.25 mm reconstructions generated on the radiologist workstation. 15.0 Mm source ROT sequence. 15.0 mm PE oblique 3-D reformatted images. No adverse reactions. Total Exam DLP: 617.62 mGy-cm. This exam was performed according to our departmental CT dose-optimization program which includes automated exposure control, adjustment of the mA and/or kV according to patient size and/or use of iterative reconstruction technique; to reduce radiation dose to as low as reasonably achievable (ALARA). FINDINGS: Again noted is dilation of the main pulmonary artery and the right and left pulmonary arteries stable in size since the prior study. Left main pulmonary artery measures 3.8 cm in greatest diameter. Right main pulmonary artery measures 3.9 cm in greatest diameter. Tiny residual embolus on the posterior wall of the right pulmonary artery just proximal to the bifurcation of the right middle lobe PA and right lower lobe PA. No emboli distal to this point. No filling defects distal to the origin of the right upper lobe PA branch. No filling defects seen from the left pulmonary artery, to the distal subsegmental branches of the left pulmonary artery. Subsegmental pulmonary artery branches are symmetric in caliber bilaterally. Heterogeneous enhancement of the thyroid gland. Proximal brachiocephalic atherosclerotic calcifications. Atherosclerotic calcifications of the descending aorta. Coronary artery calcifications. Mild cardiac enlargement. Small bilateral hilar nodes. No mediastinal or axillary nodes. Included abdomen is unremarkable with no free fluid. Narrowing of thoracic disc spaces. Endplate ridging. Pleural thickening and atelectasis in the base of the right middle lobe. Minimal atelectasis in the base of the inferior lingula and left lower lobe. Left lower lobe volume loss and Pleural thickening but no effusion. No abnormal nodules masses or infiltrates bilaterally. No pneumothorax bilaterally. IMPRESSION: 1. Embolus in the distal right pulmonary artery has significantly decreased in size since the prior study. No new emboli bilaterally. Symmetric caliber of the distal subsegmental pulmonary artery branches bilaterally. Dilated main pulmonary artery and right and left pulmonary artery branches again noted consistent with pulmonary hypertension. Moderate cardiomegaly stable. 2. Small bilateral hilar nodes stable since the prior study. No new lymph nodes or soft tissue masses in the chest. 3. Stable bilateral regions of atelectasis and pleural thickening. No pleural effusion or pneumothorax. Electronically signed by: Silverio Chambers MD 11/04/2017 11:26 AM CDT
== END ==
LOC: CT 09:00
PROVIDERS: ATTEND Family Medicine
DX: I26.99 Other pulmonary embolism without acute cor pulmonale (principal); J98.11 Atelectasis

== ENCOUNTER 2017-11-27 13:28 | Observation (INO) | payer MEDICARE ==
[2017-11-27] MEDS ORDERED: ONDANSETRON ODT 8 MG TAB SL ONE (14:07)
[2017-11-27] MEDS ORDERED: ACETAMINOPHEN 500 MG TAB PO ONE (14:53)
--- NOTE | 2017-11-27 14:54 | RAD ---
EXAM DESCRIPTION: Abdomen Series CLINICAL HISTORY: vomiting COMPARISON: CT chest November 04, 2017 FINDINGS: Frontal view of the chest and supine and upright images of the abdomen were submitted. Cardiac silhouette is within normal limits. Enlarged romeo compatible with enlargement of the pulmonary arteries as noted in the recent CT scan. There is atherosclerosis. There are degenerative changes of the lumbar spine. There is no focal parenchymal or pleural disease. There is no free air in the abdomen. There is no evidence of bowel obstruction. IMPRESSION: No acute abnormalities. Electronically signed by: Leeroy Win MD 11/27/2017 2:53 PM CDT
[2017-11-27] MEDS ORDERED: METOPROLOL TARTRATE 25 MG TAB PO ONE (15:01)
[2017-11-27] MEDS ORDERED: ACETYLCYSTEIN 20 % 6,000 MG/30 ML VIAL PO ONE (18:44)
[2017-11-27] MEDS ORDERED: PANTOPRAZOLE SODIUM IV 40 MG VIAL IV ONE (18:50)
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
--- NOTE | 2017-11-27 19:54 | HP ---
SUPERVISING PHYSICIAN: Omi Nash M.D. CHIEF COMPLAINT: Nausea and vomiting. HISTORY OF PRESENT ILLNESS: This is an 87 year-old female patient who has had about a week long history of feeling very poorly. She does have a significant history of dementia. Her daughters say that she just wasn't acting right over the last few days, but today about 1:00 PM she started having some nausea and vomiting, and she became very clammy. She was short of breath, although her O2 sats at home were 98%. EMS was called and she was brought to the Emergency Room. In the E. R., she was found to be in atrial fibrillation with her rates in the 110s to 130s. Her blood pressure was 158/99. She was afebrile. Respiratory rate was 20 and O2 sats were 96% on 2 liters. There is no history in the EMR of her being in atrial fibrillation, although she had a PE about 3 or 4 months ago and has been on Eliquis. She actually had a followup CTA on November 04 that showed an improvement on her PE. She was given a dose of metoprolol tartrate as well as some Zofran. She was also given a Mucomyst breathing treatment and Protonix IV. Her heart rate came down to the low 100s. Due to her history of pulmonary embolism and new history of atrial fibrillation, I was called for hospital admission. PAST MEDICAL HISTORY: 1. Hypertension. 2. Hyperlipidemia. 3. Myocardial infarction about 18 years ago. 4. Congestive heart failure of unknown etiology with no current echocardiogram to review. 5. Chronic obstructive pulmonary disease. 6. Dementia. 7. History of H. pylori. 8. History of diverticulitis. 9. Diabetes mellitus type 2. PAST SURGICAL HISTORY: 1. Angioplasty about 18 years ago with 2 stent placements. 2. Hysterectomy. 3. Hernia repair. CURRENT MEDICATIONS: Per the EMR and awaiting verification. ALLERGIES: INDERAL. FAMILY HISTORY: Noncontributory. SOCIAL HISTORY: She quit smoking approximately 40 years ago. There is no history of alcohol or illicit drug use. REVIEW OF SYSTEMS: GENERAL: Positive for fatigue. Negative for fever or weight changes. HEENT: Negative for sinus symptoms, ear pain, vision changes or sore throat. RESPIRATORY: Earlier complaints of shortness of breath, although her O2 sats have been in the upper 90s. Negative for wheezing or cough. CARDIAC: Negative for chest pain. GASTROINTESTINAL: Positive for nausea and vomiting, although it has resolved. Negative for constipation or diarrhea. GENITOURINARY: Negative for hematuria, dysuria or polyuria. SKIN: Negative for lesions or rashes. NEUROLOGIC: Negative for headaches, dizziness or seizures. PHYSICAL EXAMINATION: VITAL SIGNS: temperature 97.4, heart rate 106, blood pressure 99/68, respiratory rate 22, O2 sat 97% on 2 liters nasal cannula. GENERAL: This is an 87 year-old female patient lying in her hospital bed. She is in no acute distress. HEENT: Normocephalic and atraumatic. Oropharynx is clear. NECK: Supple without mass. There is no discernible jugular venous distention. RESPIRATORY: Essentially clear to auscultation bilaterally. CHEST: There is equal rise and fall of the chest with inspiration and expiration. CARDIOVASCULAR: Tachycardic rate, irregular rhythm. Atrial fibrillation on the cardiac nurse specialist. GASTROINTESTINAL: Abdomen is soft, nondistended, non-tender. Bowel sounds are positive. EXTREMITIES: No cyanosis, clubbing or edema. NEUROLOGIC: She is awake and alert. Oriented to person only. She is very pleasantly confused and can answer some simple questions appropriately. LABORATORY: CBC is basically within normal limits. D-dimer is slightly elevated at 0.54. Electrolytes are basically within normal limits. BNP is 160. Cardiac enzymes at 1436 and 1808 are both negative. Abdominal x-ray shows no acute abnormalities. All other labs and films have been reviewed via the EMR. ASSESSMENT: 1. Atrial fibrillation, new onset with no reported history of atrial fibrillation. She has been anticoagulated since August of 2017 for a pulmonary embolism. Her heart rate got as high as 130 in the Emergency Room, it is now in the low 100s. 2. Nausea and vomiting. 3. Recent history of pulmonary embolism being anticoagulated with Eliquis. 4. Diabetes mellitus type 2. 5. Hypertension. 6. Congestive heart failure of unknown etiology and no current echocardiogram to review. 7. Chronic obstructive pulmonary disease. 8. Dementia. PLAN: We will place the patient in observation. We will monitor her cardiac rhythm closely. I have not adjusted any of her medications as she is presently on metoprolol tartrate. We may have to increase the dosage there depending on her heart rate overnight. She will need close followup with Dr. Ascencio if she continues to have atrial fibrillation so she can followup with her manager special events. I have resumed her home medicine as well as her Eliquis. I have also started a PPI for ulcer prophylaxis. Will monitor her closely and follow as needed. Dr. Nash is the collaborating physician available for consultation. #[id number] MTDD
[2017-11-27] MEDS ORDERED: DEXTROSE 50% 25 GM/50 ML SYG IV PRN (20:27)
[2017-11-27] MEDS ORDERED: GLUCAGON INJ 1 MG VIAL SUBCU PRN (20:27)
[2017-11-27] MEDS ORDERED: SODIUM CHLORIDE 0.9% (FLUSH) 10 ML SYG IV PRN (20:28)
[2017-11-27] MEDS ORDERED: ONDANSETRON INJ 4 MG/2 ML VIAL IV PRN (20:29)
[2017-11-27] MEDS ORDERED: LEVALBUTEROL NEBS 1.25 MG/3 ML VIAL NEB PRN (20:29)
[2017-11-27] MEDS ORDERED: ACETAMINOPHEN 325 MG TAB PO PRN (20:29)
[2017-11-27] MEDS ORDERED: IV SET AND CAP CHANGE INJ INJ SCH (20:30)
[2017-11-27] MEDS ORDERED: NON-FORMULARY MEDICATION 1 EA MIS (Lovastatin [Lovastatin] 20 MG) PO SCH (21:00)
[2017-11-27] MEDS ORDERED: MAGNESIUM OXIDE 400 MG PO SCH (21:00)
[2017-11-27] MEDS ORDERED: NON-FORMULARY MEDICATION 1 EA MIS (Melatonin [Melatonin] 10 MG) PO SCH (21:00)
[2017-11-27] MEDS ORDERED: DOCUSATE SODIUM 100 MG CAP PO SCH (21:00)
[2017-11-27] MEDS ORDERED: NON-FORMULARY MEDICATION 1 EA MIS (Memantine Hcl [Namenda] 5 MG) PO SCH (21:00)
[2017-11-27] MEDS ORDERED: NON-FORMULARY MEDICATION 1 EA MIS (Apixaban [Eliquis] 5 MG) PO SCH (21:00)
[2017-11-27] MEDS ORDERED: MEMANTINE 10 MG TAB ONE (21:08)
[2017-11-27] MEDS ORDERED: APIXABAN 2.5 MG TAB PO ONE (21:08)
[2017-11-27] MEDS ORDERED: MAGNESIUM OXIDE 400 MG TAB ONE (21:08)
[2017-11-27] MEDS: INSULIN LISPRO 100 UNITS/ML PEN SUBCU SCH (21:11)
[2017-11-27] MEDS: guaiFENesin ER TAB 600 MG TAB PO SCH (21:12)
[2017-11-27] MEDS: SODIUM CHLORIDE 0.9% (FLUSH) 10 ML SYG IV SCH (21:13)
[2017-11-28] MEDS: PANTOPRAZOLE SODIUM IV 40 MG VIAL IV SCH (06:20)
[2017-11-28] MEDS: IPRATROPIUM/ALBUTEROL 3 ML VIAL NEB SCH ×4 (07:20→21:05)
[2017-11-28] MEDS: BUDESONIDE/FORMOTEROL 160/4.5 60 PUFF/6 GM INH INH SCH ×2 (07:20→21:20)
[2017-11-28] MEDS: METOPROLOL TARTRATE 25 MG TAB PO SCH ×2 (08:00→17:23)
[2017-11-28] MEDS ORDERED: diphenhydrAMINE HCL 25 MG CAP PO PRN (08:00)
[2017-11-28] MEDS: MEMANTINE 10 MG TAB PO SCH ×2 (09:10→21:40)
[2017-11-28] MEDS: DOCUSATE SODIUM 100 MG CAP PO SCH (09:10)
[2017-11-28] MEDS: ESCITALOPRAM 10 MG TAB PO SCH (09:10)
[2017-11-28] MEDS: CETIRIZINE HCL 10 MG TAB PO SCH (09:11)
[2017-11-28] MEDS: DONEPEZIL HCL 5 MG TAB PO SCH (09:11)
[2017-11-28] MEDS: APIXABAN 2.5 MG TAB PO SCH ×2 (09:11→21:43)
[2017-11-28] MEDS: POTASSIUM CHLORIDE 10 MEQ TAB PO SCH (09:11)
[2017-11-28] MEDS: guaiFENesin ER TAB 600 MG TAB PO SCH ×2 (09:11→21:30)
[2017-11-28] MEDS: SODIUM CHLORIDE 0.9% (FLUSH) 10 ML SYG IV SCH ×2 (09:12→21:30)
[2017-11-28] MEDS: metFORMIN HCL 500 MG TAB PO SCH (09:12)
[2017-11-28] MEDS: ASPIRIN (CHEWABLE) 81 MG TAB PO SCH (09:12)
[2017-11-28] MEDS: UMECLIDINIUM BROMIDE PO SCH (09:48)
--- NOTE | 2017-11-28 17:01 | PN ---
SUPERVISING PHYSICIAN: Omi Nash MD DATE: 11/28/17 SUBJECTIVE: At approximately 10:00 AM this morning the patient had been assisted up to the bathroom to have a bowel movement. She became very weak and almost passed out. She was diaphoretic. Her heart rate went down to the upper 40s, still in atrial fibrillation. The patient was assisted back to the bed, initially her blood pressure could not be obtained and shortly thereafter her systolic blood pressure was in the 90s. After a few minutes she became more alert, she was able to answer some simple questions and she did complain of some nausea. She was given some Zofran. She had no vomiting. During this time , I had a lengthy discussion with her daughter who is her medical Power of Civil Transportation Engineer and it was decided at that time that she should be a DNR. Appropriate paperwork was signed. The patient was monitored closely. OBJECTIVE: VITAL SIGNS: Temperature 98.8, pulse rate is in the mid 60s to the low 80s, it is irregular. Blood pressure is 95/56, respiratory rate 18. 02 saturation is 95% on 2 liters nasal cannula. RESPIRATORY: Essentially clear to auscultation bilaterally. She does have a few coarse breath sounds through the upper airways. CARDIAC: Regular rate, irregular rhythm. Atrial fibrillation on the gambling monitor. ABDOMEN: Soft, nondistended, non-tender. Bowel sounds are positive. NEURO: She is awake, she is slightly lethargic but she does answer questions appropriately. LABORATORY: CBC is basically within normal limits. Electrolytes are within normal limits with the exception her chloride is slightly low at 98. Her creatinine has gone up slightly to 1.21. Blood sugars have run between 105 and 136. All other labs and films have been reviewed via the EMR. ASSESSMENT: 1. Atrial fibrillation, new onset with no reported history of atrial fibrillation. She has been anticoagulated since August of 2017 for a pulmonary embolism. \ She continues to be in atrial fibrillation, although her rate has stayed mostly in the 80s to low 100s. 2. Near syncopal episode, most likely a vagal response from earlier this morning. Her heart rate did drop to the 40s. She is now a DNR and patient's vital signs are now stable. 3. Nausea and vomiting. 4. Recent history of pulmonary embolism being anticoagulated with Eliquis. 5. Diabetes mellitus type 2. 6. Hypertension. 7. Congestive heart failure of unknown etiology and no current echocardiogram to review. 8. Chronic obstructive pulmonary disease. 9. Dementia. PLAN: We will continue present supportive care. Appropriate paperwork has been done and she is now a DNR. I have not made any changes on her medications as her vital signs are fairly stable. She does continue to be in atrial fibrillation. As for her syncopal episode, I believe it was a vagal response as the patient does have a significant history of constipation and it was reported by the nurse that while she was having a bowel movement during her syncopal episode or near syncopal episode her stool was very hard so I will give her 2 doses of milk of magnesia. We will monitor her overnight and watch her heart rate. She will need close followup with Dr. Ascencio after discharge and she may even need a Holter monitor on discharge until she can see Dr. Ascencio and followup with a materials supervisor. Total critical care time was about 30 minutes. #[id number] ADDENDUM: I saw the patient at 12:30 this afternoon. She is alert and oriented x3. She is eating her lunch and has had no further complaints of syncopal episodes. Her family is at the bedside and they also believe it may be related to her straining with bowel movement. We will continue to monitor closely and follow as needed. #[id number] [facility] C[facility]ERRad[facility]
[2017-11-28] MEDS: INSULIN LISPRO 100 UNITS/ML PEN SUBCU SCH ×4 (17:07→21:30)
[2017-11-28] MEDS ORDERED: SODIUM CHLORIDE 0.9% 250ML 250 ML IVS ONE (17:10)
[2017-11-28] MEDS: MAGNESIUM HYDROXIDE 30 ML UD PO SCH ×2 (17:23→21:30)
[2017-11-28] MEDS ORDERED: MAGNESIUM HYDROXIDE 30 ML UD ONE (20:02)
[2017-11-28] MEDS ORDERED: MAGNESIUM OXIDE 400 MG TAB PO SCH (21:00)
[2017-11-28] MEDS ORDERED: SIMVASTATIN 10 MG TAB PO SCH (21:00)
[2017-11-28] MEDS ORDERED: MELATONIN 3 MG TAB PO SCH (21:00)
[2017-11-29] MEDS: BIFIDOBACTERIUM INFANTIS 4 MG CAP PO SCH ×2 (00:25→00:31)
[2017-11-29] MEDS: PANTOPRAZOLE SODIUM IV 40 MG VIAL IV SCH (06:18)
[2017-11-29] MEDS: INSULIN LISPRO 100 UNITS/ML PEN SUBCU SCH ×2 (07:20→12:10)
[2017-11-29] MEDS: metFORMIN HCL 500 MG TAB PO SCH (07:57)
[2017-11-29] MEDS: POTASSIUM CHLORIDE 10 MEQ TAB PO SCH (07:57)
[2017-11-29] MEDS: METOPROLOL TARTRATE 25 MG TAB PO SCH (07:58)
[2017-11-29] MEDS: IPRATROPIUM/ALBUTEROL 3 ML VIAL NEB SCH ×2 (08:39→11:36)
[2017-11-29] MEDS: BUDESONIDE/FORMOTEROL 160/4.5 60 PUFF/6 GM INH INH SCH (08:40)
[2017-11-29 08:44] VITALS: O2SAT 95
[2017-11-29] MEDS: UMECLIDINIUM BROMIDE PO SCH (09:21)
[2017-11-29] MEDS: MEMANTINE 10 MG TAB PO SCH (09:24)
[2017-11-29] MEDS: CETIRIZINE HCL 10 MG TAB PO SCH (09:24)
[2017-11-29] MEDS: DOCUSATE SODIUM 100 MG CAP PO SCH (09:24)
[2017-11-29] MEDS: APIXABAN 2.5 MG TAB PO SCH (09:25)
[2017-11-29] MEDS: DONEPEZIL HCL 5 MG TAB PO SCH (09:25)
[2017-11-29] MEDS: guaiFENesin ER TAB 600 MG TAB PO SCH (09:25)
[2017-11-29] MEDS: ASPIRIN (CHEWABLE) 81 MG TAB PO SCH (09:25)
[2017-11-29] MEDS: SODIUM CHLORIDE 0.9% (FLUSH) 10 ML SYG IV SCH (09:25)
[2017-11-29] MEDS: ESCITALOPRAM 10 MG TAB PO SCH (09:26)
[2017-11-29 11:31] VITALS: BP 125/71; TEMP 97.1
--- NOTE | 2017-11-29 14:53 | DS ---
SUPERVISING PHYSICIAN: Arlin Hawthorne MD ADMISSION DIAGNOSIS: 1. Atrial fibrillation with rapid ventricular response. 2. Nausea with vomiting. 3. History of pulmonary embolism on anticoagulation. 4. Diabetes mellitus, type 2. 5. Hypertension. 6. Congestive heart failure. 7. Chronic obstructive pulmonary disease. 8. Dementia. DISCHARGE DIAGNOSIS: 1. Atrial fibrillation with rapid ventricular response. 2. Nausea with vomiting. 3. History of pulmonary embolism on anticoagulation. 4. Diabetes mellitus, type 2. 5. Hypertension. 6. Congestive heart failure. 7. Chronic obstructive pulmonary disease. 8. Dementia. HOSPITAL COURSE: This is an 87-year-old female patient who has had about a week long history of feeling very poorly. She does have a significant history of dementia. Her daughters say that she just was not acting right over the last few days prior to admission, but on the day of admission about 1:00 PM she started having some nausea and vomiting, and she became very clammy. She was short of breath, although her O2 sats at home were 98%. EMS was called and she was brought to the Emergency Room. In the ER, she was found to be in atrial fibrillation with her rates in the 110s to 130s. Her blood pressure was 158/ 99. She was afebrile. Respiratory rate was 20 and O2 sats were 96% on 2 liters. There is no history in the EMR of her being in atrial fibrillation, although she had a PE about 3 or 4 months ago and has been on Eliquis. She actually had a followup CTA on November 04 that showed an improvement on her PE. She was given a dose of metoprolol tartrate as well as some Zofran. She was also given a Mucomyst breathing treatment and Protonix IV. Her heart rate came down to the low 100s. Due to her history of pulmonary embolism and new history of atrial fibrillation, she was admitted. The patient converted to a sinus rhythm throughout the admission. However, yesterday when she was attempting to have a bowel movement, she did have a vagal response and had a syncopal episode due to that. She was kept an additional day to continue to monitor her and she had no further episodes of this. I discussed her bowel regimen at home with her and she does take stool softeners. I have added MiraLAX and she agrees to take this. I also spoke with Dr. Ascencio, her primary care physician, regarding the patient and he is going to followup with her this Wednesday as well. DISCHARGE DIET: No change to her current diet. DISCHARGE MEDICATIONS: Continue all her current medications. I am not adjusting any of her dosing at this time given the fact she has maintained a normal sinus rhythm the last 36 hours or so on the current medications. She is also already on anticoagulation. ACTIVITY: As tolerated. However, I have discussed increasing the frequency of her home health visits and they are going to start 3 days a week as opposed to the previous 1 day a week she was getting before. #[id number] MTDD
[2017-11-29] MEDS ORDERED: UMECLIDINIUM BROMIDE PO SCH (21:00)
== END 2017-11-29 12:00 | disposition home health service (06) ==
LOC: ER 13:28 → MS 19:45 → INTOOBSV 19:45
PROVIDERS: ADMIT Nurse Practitioner Acute Care; ATTEND Nurse Practitioner
DX: I48.91 Unspecified atrial fibrillation (principal); R55 Syncope and collapse; R11.2 Nausea with vomiting, unspecified; E11.9 Type 2 diabetes mellitus without complications; I11.0 Hypertensive heart disease with heart failure; I50.9 Heart failure, unspecified; J44.9 Chronic obstructive pulmonary disease, unspecified; F03.90 Unspecified dementia, unspecified severity, without behavioral disturbance, psychotic disturbance, mood disturbance, and anxiety; E78.5 Hyperlipidemia, unspecified; I25.2 Old myocardial infarction; I45.10 Unspecified right bundle-branch block; Z66 Do not resuscitate; Z86.711 Personal history of pulmonary embolism; Z79.01 Long term (current) use of anticoagulants; Z79.84 Long term (current) use of oral hypoglycemic drugs; Z79.82 Long term (current) use of aspirin; Z79.899 Other long term (current) drug therapy; Z88.8 Allergy status to other drugs, medicaments and biological substances; Z95.5 Presence of coronary angioplasty implant and graft; Z87.891 Personal history of nicotine dependence
CPT/HCPCS: 96375; 96376 ×2; J2405; J7050; J7620 ×5; 85379; 82553 ×2; 80053 ×2; 87086; 82948 ×7; 36415 ×2; 82150; 87077; 87186; 81001; 85025 ×2; 82550 ×2; 83690; 83735; 85730; 85610; 84484 ×2; 83880; 36416 ×6; 74019; 94640 ×6; 94760 ×7; 94664 ×3; 99285; 93005; G0378; 96374

== ENCOUNTER → 2017-12-03 | Outpatient (CLI) | payer MEDICARE | LOC: GMAL 12:32 | PROVIDERS: ATTEND Family Medicine | DX: R53.83 Other fatigue (principal) ==

== ENCOUNTER → 2018-05-06 | Outpatient (CLI) | payer MEDICARE | LOC: BFHH 09:46 | PROVIDERS: ATTEND Family Medicine | DX: N39.0 Urinary tract infection, site not specified (principal) ==

== ENCOUNTER → 2018-05-31 | Outpatient (CLI) | payer MEDICARE | LOC: BFHH 11:42 | PROVIDERS: ATTEND Family Medicine | DX: I11.0 Hypertensive heart disease with heart failure (principal); I50.30 Unspecified diastolic (congestive) heart failure; E11.9 Type 2 diabetes mellitus without complications; F01.50 Vascular dementia, unspecified severity, without behavioral disturbance, psychotic disturbance, mood disturbance, and anxiety; I48.91 Unspecified atrial fibrillation; J44.9 Chronic obstructive pulmonary disease, unspecified; I05.1 Rheumatic mitral insufficiency; K57.90 Diverticulosis of intestine, part unspecified, without perforation or abscess without bleeding; I25.10 Atherosclerotic heart disease of native coronary artery without angina pectoris; E53.9 Vitamin B deficiency, unspecified; E55.9 Vitamin D deficiency, unspecified ==

== ENCOUNTER → 2018-06-08 | Outpatient (CLI) | payer MEDICARE | LOC: GMAL 16:02 | PROVIDERS: ATTEND Family Medicine | DX: R35.0 Frequency of micturition (principal) ==

== ENCOUNTER 2018-09-10 10:59 | Observation (INO) | payer MEDICARE ==
[2018-09-11 10:14] VITALS: TEMP 97.4
[2018-09-11 15:14] VITALS: BP 117/65; O2SAT 92
== END 2018-09-11 16:43 | disposition home or self-care (01) ==
LOC: ER 10:59 → MS 17:42 → INTOOBSV 17:42
PROVIDERS: ADMIT Nurse Practitioner; ATTEND Nurse Practitioner
DX: I48.2 Chronic atrial fibrillation (principal); N39.0 Urinary tract infection, site not specified; I11.0 Hypertensive heart disease with heart failure; E78.5 Hyperlipidemia, unspecified; R74.8 Abnormal levels of other serum enzymes; I50.9 Heart failure, unspecified; E11.9 Type 2 diabetes mellitus without complications; I49.3 Ventricular premature depolarization; J44.9 Chronic obstructive pulmonary disease, unspecified; F03.90 Unspecified dementia, unspecified severity, without behavioral disturbance, psychotic disturbance, mood disturbance, and anxiety; I45.10 Unspecified right bundle-branch block; I25.2 Old myocardial infarction; Z79.84 Long term (current) use of oral hypoglycemic drugs; Z79.82 Long term (current) use of aspirin; Z79.899 Other long term (current) drug therapy; Z95.5 Presence of coronary angioplasty implant and graft; Z87.891 Personal history of nicotine dependence; Z88.8 Allergy status to other drugs, medicaments and biological substances
CPT/HCPCS: 92960; 96374; 96376; 96372; J1815; J7050 ×2; 82553 ×2; 80053; 87086; 82948 ×3; 36415 ×2; 81001; 85025; 82550 ×2; 83735; 85730; 85610; 84443; 84484 ×2; 83880; 36416 ×3; 71045; 70450; 94760; 94664; 99291; 93005; G0378

== ENCOUNTER → 2018-09-30 | Outpatient (CLI) | payer MEDICARE | LOC: BFHH 18:23 | PROVIDERS: ATTEND Family Medicine | DX: N39.0 Urinary tract infection, site not specified (principal) ==

== ENCOUNTER 2018-10-18 20:44 | Emergency (ER) | payer MEDICARE ==
[2018-10-18 20:54] VITALS: TEMP 97.6
[2018-10-18] MEDS ORDERED: SODIUM CHLORIDE 0.9% 500ML 500 ML IVS ONE (21:24)
--- NOTE | 2018-10-18 21:58 | CT ---
EXAM: CT Head Without Intravenous Contrast CLINICAL HISTORY: The patient is 88 years old and is Female; syncope TECHNIQUE: Axial computed tomography images of the head/brain without intravenous contrast. Sagittal and coronal reformatted images were created and reviewed. This CT exam was performed using one or more of the following dose reduction techniques: automated exposure control, adjustment of the mA and/or kV according to patient size, and/or use of iterative reconstruction technique. COMPARISON: CT head September 10, 2018. FINDINGS: BRAIN: There is diffuse cerebral atrophy present, consistent with this patient's age. There is patchy hypoattenuation of the deep white matter which is non-specific, but most likely owing to chronic small vessel ischemic change in a patient of this age group. 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 Bilateral basal ganglia calcifications are present. No intracranial hemorrhage, mass effect, or midline shift is seen. There are no extra-axial fluid collections. VENTRICLES: Unremarkable. No ventriculomegaly. BONES/JOINTS: No acute fracture. SOFT TISSUES: Unremarkable. VASCULATURE: Atherosclerosis of intracranial vessels is present. SINUSES: Unremarkable as visualized. No acute sinusitis. MASTOID AIR CELLS: Unremarkable as visualized. No mastoid effusion. IMPRESSION: Age-related atrophy and chronic white matter ischemic changes, with no evidence of an acute intracranial abnormality. Electronically signed by: Esperanza Espinal MD 10/18/2018 9:55 PM CDT
--- NOTE | 2018-10-18 22:01 | RAD ---
EXAM DESCRIPTION: Chest,1 View CLINICAL HISTORY: syncope COMPARISON: Chest radiograph dated September 10, 2018 TECHNIQUE: Single upright portable frontal view of the chest FINDINGS: Calcific atherosclerosis of the aortic arch. Cardiac silhouette shows cardiomegaly without congestive heart failure. Prominence of the bilateral hilar regions, compatible with prominent pulmonary arteries from pulmonary hypertension seen on comparison chest CT angiogram of November 04, 2017. Lungs show no confluent infiltrates. Redemonstration of benign calcified granuloma in the right upper lobe. No significant pleural effusion. No pneumothorax. No acute osseous abnormality. IMPRESSION: 1. Prominent vasculature of the bilateral hilar regions, compatible with prominent pulmonary arteries from pulmonary hypertension seen on comparison chest CT angiogram of November 04, 2017. 2. Cardiomegaly without congestive heart failure. 3. Lungs show no confluent infiltrates. Electronically signed by: Jose Alberto Siegel MD 10/18/2018 9:58 PM CDT
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
[2018-10-19 00:28] VITALS: BP 144/68; O2SAT 99
== END 2018-10-19 00:24 | disposition home or self-care (01) ==
LOC: ER 20:44
DX: R55 Syncope and collapse (principal); N18.3 Chronic kidney disease, stage 3 (moderate); I45.10 Unspecified right bundle-branch block; F03.90 Unspecified dementia, unspecified severity, without behavioral disturbance, psychotic disturbance, mood disturbance, and anxiety; J44.9 Chronic obstructive pulmonary disease, unspecified; I48.91 Unspecified atrial fibrillation; I50.9 Heart failure, unspecified; E11.22 Type 2 diabetes mellitus with diabetic chronic kidney disease; I13.0 Hypertensive heart and chronic kidney disease with heart failure and stage 1 through stage 4 chronic kidney disease, or unspecified chronic kidney disease; Z87.891 Personal history of nicotine dependence; Z79.899 Other long term (current) drug therapy; Z79.84 Long term (current) use of oral hypoglycemic drugs; Z79.82 Long term (current) use of aspirin; Z88.8 Allergy status to other drugs, medicaments and biological substances

== ENCOUNTER 2018-11-01 23:43 | Emergency (ER) | payer MEDICARE ==
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
[2018-11-02] MEDS ORDERED: SODIUM CHLORIDE 0.9% 1000ML 1,000 ML ONE (00:24)
[2018-11-02] MEDS ORDERED: SODIUM CHLORIDE 0.9% 500ML 500 ML IVS ONE (00:28)
[2018-11-02] MEDS ORDERED: AMIODARONE IV (LOAD) 150 MG in DEXTROSE 5% 100ML 100 ML IVPB ONE (00:37)
[2018-11-02] MEDS ORDERED: AMIODARONE HCL 150 MG/3 ML VIAL IVPB ONE (00:40)
[2018-11-02] MEDS ORDERED: DEXTROSE 5% 100ML 100 ML IVPB ONE (00:40)
[2018-11-02 01:41] VITALS: BP 104/63; TEMP 98; O2SAT 99
== END 2018-11-02 01:40 | disposition home or self-care (01) ==
LOC: ER 23:43
DX: I48.91 Unspecified atrial fibrillation (principal); E11.9 Type 2 diabetes mellitus without complications; I11.0 Hypertensive heart disease with heart failure; I50.9 Heart failure, unspecified; E78.5 Hyperlipidemia, unspecified; I45.10 Unspecified right bundle-branch block; I25.2 Old myocardial infarction; Z79.01 Long term (current) use of anticoagulants; Z79.82 Long term (current) use of aspirin; Z79.899 Other long term (current) drug therapy
CPT/HCPCS: 80053; 82550; 82553; 83735; 84484; 85025; 85610; 85730; 93005; J0282; J7030; J7040; J7060

== ENCOUNTER 2018-11-18 13:24 | Emergency (ER) | payer MEDICARE ==
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
--- NOTE | 2018-11-18 14:03 | RAD ---
EXAM DESCRIPTION: Chest,1 View CLINICAL HISTORY: 88 years Female, syncope COMPARISON: 10/18/2018 IMPRESSION: The heart remains enlarged with enlargement of both hilar regions, likely secondary to pulmonary arterial enlargement and pulmonary hypertension. Probable small left pleural effusion versus pleural thickening. No confluent airspace consolidation or pneumothorax. No acute osseous abnormality. Electronically signed by: Fredrick Ann MD 11/18/2018 2:01 PM CDT
--- NOTE | 2018-11-18 14:41 | CT ---
EXAM DESCRIPTION: CT-Head CLINICAL HISTORY: syncope COMPARISON: 10/18/2018 TECHNIQUE: Multiple axial images of the head without contrast. Multiplanar reformatted images. This exam was performed according to our departmental dose-optimization program, which includes automated exposure control, adjustment of the mA and/or kV according to patient size and/or use of iterative reconstruction technique. FINDINGS: There is no CT evidence of intracranial hemorrhage, mass effect, or large territory infarction. Moderate generalized volume loss. Moderate patchy supratentorial white matter hypodensities. Mineralization in the basal ganglia. There are no abnormal extra-axial fluid collections. Calcific plaque in the visualized arteries. There is no acute calvarial defect. The visualized paranasal sinuses and the mastoids are clear. IMPRESSION: 1. No CT evidence of an acute intracranial abnormality. If there is concern for an acute or subacute infarct, consider follow-up MRI. 2. Advanced senescent changes. Electronically signed by: Fredrick Ann MD 11/18/2018 2:39 PM CDT
[2018-11-18] MEDS ORDERED: SODIUM CHLORIDE 0.9% 500ML 500 ML IVS ONE (14:49)
[2018-11-18 15:58] VITALS: BP 111/63; TEMP 97.5; O2SAT 96
== END 2018-11-18 16:08 | disposition short-term general hospital (02) ==
LOC: ER 13:24
DX: I21.4 Non-ST elevation (NSTEMI) myocardial infarction (principal); R55 Syncope and collapse; I48.91 Unspecified atrial fibrillation; I45.10 Unspecified right bundle-branch block; I25.10 Atherosclerotic heart disease of native coronary artery without angina pectoris; I25.2 Old myocardial infarction; F03.90 Unspecified dementia, unspecified severity, without behavioral disturbance, psychotic disturbance, mood disturbance, and anxiety; E11.9 Type 2 diabetes mellitus without complications; I11.0 Hypertensive heart disease with heart failure; I50.9 Heart failure, unspecified; J44.9 Chronic obstructive pulmonary disease, unspecified; Z79.01 Long term (current) use of anticoagulants; Z79.82 Long term (current) use of aspirin; Z79.899 Other long term (current) drug therapy; Z87.891 Personal history of nicotine dependence; Z79.84 Long term (current) use of oral hypoglycemic drugs; Z88.8 Allergy status to other drugs, medicaments and biological substances
CPT/HCPCS: 36415; 70450; 71045; 80053; 82550; 82553; 83605; 83735; 83880; 84484; 85025; 85610; 85730; 93005; J7040

== ENCOUNTER → 2018-12-21 | Outpatient (CLI) | payer MEDICARE | LOC: BFHH 12:07 | PROVIDERS: ATTEND Family Medicine | DX: E11.9 Type 2 diabetes mellitus without complications (principal) ==

== ENCOUNTER → 2019-02-09 | Outpatient (CLI) | payer MEDICARE | LOC: BFHH 13:34 | PROVIDERS: ATTEND Family Medicine | DX: I48.20 Chronic atrial fibrillation, unspecified (principal); I11.0 Hypertensive heart disease with heart failure; I50.33 Acute on chronic diastolic (congestive) heart failure; J44.9 Chronic obstructive pulmonary disease, unspecified ==

== ENCOUNTER → 2019-04-03 | Outpatient (CLI) | payer MEDICARE | LOC: BFHH 11:01 | PROVIDERS: ATTEND Family Medicine | DX: I50.33 Acute on chronic diastolic (congestive) heart failure (principal); E11.9 Type 2 diabetes mellitus without complications; J44.9 Chronic obstructive pulmonary disease, unspecified; F32.9 Major depressive disorder, single episode, unspecified; F01.50 Vascular dementia, unspecified severity, without behavioral disturbance, psychotic disturbance, mood disturbance, and anxiety ==

== ENCOUNTER 2019-05-08 11:34 | Emergency (ER) | payer MEDICARE ==
[2019-05-08] MEDS ORDERED: SODIUM CHLORIDE 0.9% 1000ML 1,000 ML IVS ONE (11:44)
[2019-05-08] MEDS ORDERED: SODIUM CHLORIDE 0.9% (FLUSH) 10 ML SYG IV PRN (11:44)
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
[2019-05-08 11:51] VITALS: TEMP 97.3
--- NOTE | 2019-05-08 12:04 | RAD ---
EXAM DESCRIPTION: Chest,1 View CLINICAL HISTORY: 88 years Female, syncope, a-fib COMPARISON: November 18, 2018 Findings: One views/radiographs Similar cardiomegaly and central pulmonary vascular congestion. No pneumothorax. No pleural effusion the lungs are clear. No acute osseous abnormality. Soft tissues are unremarkable. Atherosclerotic plaque in the thoracic aorta. IMPRESSION: Similar cardiomegaly and central pulmonary vascular congestion. Electronically signed by: Miguel Aguilar MD 05/08/2019 12:02 PM SURGICAL SUPERVISOR
[2019-05-08] MEDS ORDERED: ASPIRIN (CHEWABLE) 81 MG TAB PO ONE (12:27)
[2019-05-08] MEDS ORDERED: HEPARIN PREMIX 25,000 UNITS in PREMIX BAG 1 BAG IVS ONE (12:34)
[2019-05-08] MEDS ORDERED: HEPARIN PREMIX 500 ML ONE (13:16)
[2019-05-08] MEDS ORDERED: SODIUM CHLORIDE 0.9% 500ML 500 ML IVS ONE (13:53)
[2019-05-08 14:09] VITALS: BP 125/95
[2019-05-08 14:27] VITALS: O2SAT 95
== END 2019-05-08 14:26 | disposition short-term general hospital (02) ==
LOC: ER 11:34
DX: I21.4 Non-ST elevation (NSTEMI) myocardial infarction (principal); I48.20 Chronic atrial fibrillation, unspecified; R00.0 Tachycardia, unspecified; I45.10 Unspecified right bundle-branch block; R55 Syncope and collapse; E11.9 Type 2 diabetes mellitus without complications; F03.90 Unspecified dementia, unspecified severity, without behavioral disturbance, psychotic disturbance, mood disturbance, and anxiety; R06.00 Dyspnea, unspecified; J44.9 Chronic obstructive pulmonary disease, unspecified; I50.9 Heart failure, unspecified; I11.0 Hypertensive heart disease with heart failure; Z87.891 Personal history of nicotine dependence; Z79.899 Other long term (current) drug therapy; Z79.82 Long term (current) use of aspirin; Z79.84 Long term (current) use of oral hypoglycemic drugs; Z79.01 Long term (current) use of anticoagulants
CPT/HCPCS: 71045; 80053; 82948; 83880; 84484; 85025; 85379; 93005; J1644; J7030; J7040

== ENCOUNTER → 2019-05-26 | Outpatient (CLI) | payer MEDICARE | LOC: BFHH 09:43 | PROVIDERS: ATTEND Family Medicine | DX: N39.0 Urinary tract infection, site not specified (principal) ==

== ENCOUNTER → 2019-06-29 | Outpatient (CLI) | payer MEDICARE | LOC: BFHH 12:08 | PROVIDERS: ATTEND Family Medicine | DX: I21.4 Non-ST elevation (NSTEMI) myocardial infarction (principal); I11.0 Hypertensive heart disease with heart failure; I50.9 Heart failure, unspecified ==

== ENCOUNTER → 2019-08-21 | Outpatient (CLI) | payer MEDICARE | LOC: BFHH 13:41 | PROVIDERS: ATTEND Family Medicine | DX: R30.0 Dysuria (principal) ==

== ENCOUNTER → 2019-08-31 | Outpatient (CLI) | payer MEDICARE | LOC: BFHH 10:24 | PROVIDERS: ATTEND Family Medicine | DX: N39.0 Urinary tract infection, site not specified (principal); I48.91 Unspecified atrial fibrillation; I11.0 Hypertensive heart disease with heart failure; I50.9 Heart failure, unspecified ==

== ENCOUNTER → 2019-09-19 | Outpatient (CLI) | payer MEDICARE | LOC: BFHH 10:11 | PROVIDERS: ATTEND Family Medicine | DX: I11.0 Hypertensive heart disease with heart failure (principal); I50.9 Heart failure, unspecified; E11.9 Type 2 diabetes mellitus without complications; E03.9 Hypothyroidism, unspecified; E78.5 Hyperlipidemia, unspecified ==

== ENCOUNTER 2019-10-16 17:11 | Emergency (ER) | payer MEDICARE ==
--- NOTE | 2019-10-16 18:01 | RAD ---
EXAM: Chest,1 View CLINICAL INDICATION: Shortness of breath COMPARISON: 05/08/2019 FINDINGS: A single view of the chest was obtained. The heart size is mildly enlarged. The pulmonary vascularity is unremarkable. The lungs are clear. There is no consolidation, infiltrate, pleural effusion, or pneumothorax. IMPRESSION: No evidence of active pulmonary disease. Electronically signed by: Ibrahima Corona MD 10/16/2019 5:59 PM CDT
[2019-10-16] MEDS ORDERED: levoFLOXacin 500MG IV 500 MG in PREMIX BAG 1 BAG IVPB ONE (21:20)
[2019-10-16] MEDS ORDERED: FUROSEMIDE INJ 20 MG/2 ML VIAL IV ONE (21:21)
[2019-10-16] MEDS ORDERED: ASPIRIN TABLET 325 MG TAB PO ONE (21:22)
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
[2019-10-16] MEDS ORDERED: IPRATROPIUM/ALBUTEROL 3 ML VIAL NEB ONE (21:48)
[2019-10-16] MEDS ORDERED: ENOXAPARIN SODIUM 100 MG/ML SYG SUBCU ONE (21:58)
[2019-10-16 22:10] VITALS: BP 169/78; TEMP 96.5; O2SAT 94
== END 2019-10-16 22:20 | disposition short-term general hospital (02) ==
LOC: ER 17:11
DX: J44.1 Chronic obstructive pulmonary disease with (acute) exacerbation (principal); I21.4 Non-ST elevation (NSTEMI) myocardial infarction; I11.0 Hypertensive heart disease with heart failure; I50.43 Acute on chronic combined systolic (congestive) and diastolic (congestive) heart failure; E11.9 Type 2 diabetes mellitus without complications; I48.91 Unspecified atrial fibrillation; F17.200 Nicotine dependence, unspecified, uncomplicated; Z79.899 Other long term (current) drug therapy
CPT/HCPCS: 36415; 71045; 80053; 81001; 82550; 82553; 83880; 84484; 85025; 85379; 85610; 85730; 87040; 87635; 93005; 94640; 94760; J1940; J1956; J7620

== ENCOUNTER 2019-11-27 05:24 | Day surgery (SDC) | payer MEDICARE ==
[2019-11-27] MEDS ORDERED: MOXIFLOXACIN HCL (OPHTH) 1 DROP DROPS ONE (05:48)
[2019-11-27] MEDS ORDERED: TROP1%/CYCLOPEN 1%/PHENYL 2.5% DROPS ONE (05:49)
[2019-11-27] MEDS ORDERED: PROPARACAINE 0.5% OPHTH SOL 15 ML BTTL ONE (05:49)
[2019-11-27] MEDS ORDERED: PROPARACAINE 0.5% OPHTH SOL 15 ML BTTL RIGHT_EYE ONE ×2 (08:39→08:58)
[2019-11-27] MEDS ORDERED: MOXIFLOXACIN HCL (OPHTH) 1 DROP DROPS RIGHT_EYE ONE ×2 (08:40→08:58)
[2019-11-27] MEDS ORDERED: LIDOCAINE 1% 2 ML VIAL INJ ONE ×2 (08:40→08:58)
[2019-11-27] MEDS ORDERED: TOBRAMYCIN SULF 0.3 % OPHT SOL 1 DROP RIGHT_EYE ONE ×2 (08:40→08:58)
[2019-11-27] MEDS ORDERED: DEXAMETHASONE 0.1% OPHTH SOL 1 DROP RIGHT_EYE ONE ×2 (08:40→08:58)
[2019-11-27] MEDS ORDERED: BRIMONIDINE 0.2% OPHTH DROPS RIGHT_EYE ONE ×2 (08:41→08:58)
[2019-11-27] MEDS ORDERED: MIDAZOLAM INJ 2 MG/2 ML VIAL ONE (08:55)
== END 2019-11-27 10:05 | disposition home or self-care (01) ==
LOC: AMB 05:24
PROVIDERS: ATTEND Ophthalmology
DX: E11.36 Type 2 diabetes mellitus with diabetic cataract (principal); H25.11 Age-related nuclear cataract, right eye; I48.91 Unspecified atrial fibrillation; I10 Essential (primary) hypertension; Z79.899 Other long term (current) drug therapy
CPT/HCPCS: 00142; 36416; 66982; 82948; J2250

== ENCOUNTER → 2019-12-27 | Outpatient (CLI) | payer MEDICARE | LOC: BFHH 09:40 | PROVIDERS: ATTEND Family Medicine | DX: J44.1 Chronic obstructive pulmonary disease with (acute) exacerbation (principal); I25.10 Atherosclerotic heart disease of native coronary artery without angina pectoris; I50.9 Heart failure, unspecified; E11.9 Type 2 diabetes mellitus without complications; J96.10 Chronic respiratory failure, unspecified whether with hypoxia or hypercapnia; I11.0 Hypertensive heart disease with heart failure; E78.5 Hyperlipidemia, unspecified; K57.90 Diverticulosis of intestine, part unspecified, without perforation or abscess without bleeding; I48.91 Unspecified atrial fibrillation; F03.90 Unspecified dementia, unspecified severity, without behavioral disturbance, psychotic disturbance, mood disturbance, and anxiety ==

== ENCOUNTER → 2020-01-02 | Outpatient (CLI) | payer MEDICARE | LOC: BFHH 17:48 | PROVIDERS: ATTEND Family Medicine | DX: R30.0 Dysuria (principal) ==

== ENCOUNTER → 2020-04-09 | Outpatient (CLI) | payer MEDICARE | LOC: BFHH 11:37 | PROVIDERS: ATTEND Family Medicine | DX: I11.0 Hypertensive heart disease with heart failure (principal); I25.10 Atherosclerotic heart disease of native coronary artery without angina pectoris; E11.9 Type 2 diabetes mellitus without complications; J96.10 Chronic respiratory failure, unspecified whether with hypoxia or hypercapnia; I50.32 Chronic diastolic (congestive) heart failure ==

== ENCOUNTER 2020-05-29 15:47 | Emergency (ER) | payer MEDICARE ==
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
--- NOTE | 2020-05-29 16:31 | RAD ---
EXAM DESCRIPTION: Chest,1 View CLINICAL HISTORY: cough COMPARISON: 16 October 2019 TECHNIQUE: AP portable chest FINDINGS: Prominent proximal pulmonary artery segments are observed. The heart is mildly enlarged. The lungs are clear. No pleural fluid is identified. IMPRESSION: I see no acute cardiopulmonary pathology. Electronically signed by: Jose Alberto Dash MD 05/29/2020 4:30 PM [facility]
[2020-05-29 19:57] VITALS: BP 126/85; TEMP 97.9; O2SAT 96
== END 2020-05-29 19:40 | disposition home or self-care (01) ==
LOC: ER 15:47
DX: U07.1 COVID-19 (principal); I45.10 Unspecified right bundle-branch block; I50.9 Heart failure, unspecified; I11.0 Hypertensive heart disease with heart failure; E11.9 Type 2 diabetes mellitus without complications; I48.91 Unspecified atrial fibrillation; J44.9 Chronic obstructive pulmonary disease, unspecified; F03.90 Unspecified dementia, unspecified severity, without behavioral disturbance, psychotic disturbance, mood disturbance, and anxiety; I25.10 Atherosclerotic heart disease of native coronary artery without angina pectoris; Z87.891 Personal history of nicotine dependence; Z79.899 Other long term (current) drug therapy; Z86.711 Personal history of pulmonary embolism; Z99.81 Dependence on supplemental oxygen; Z88.8 Allergy status to other drugs, medicaments and biological substances; Z79.82 Long term (current) use of aspirin; Z79.01 Long term (current) use of anticoagulants